=== PATIENT | female | born 1955 | race Two or more races ===

== ENCOUNTER → 2023-03-09 | Outpatient (CLI) | payer OTHER | LOC: RAD 12:51 | PROVIDERS: ATTEND Family Medicine | DX: R60.9 Edema, unspecified (principal) | CPT/HCPCS: 93971 ==

== ENCOUNTER → 2024-05-22 | Outpatient (REF) | payer OTHER | LOC: DX 13:04 | PROVIDERS: ATTEND Family Medicine | DX: M85.88 Other specified disorders of bone density and structure, other site (principal) | CPT/HCPCS: 77080 ==